=== PATIENT | male | born 1960 | race Caucasian/White ===

== ENCOUNTER → 2017-10-03 | Outpatient (CLI) | payer OTHER ==
[~2017-10-03] MED LIST: ALPR-411 PO; DEXT5CAP PO; TRAM-10 PO
[2017-10-03 12:59] LABS: BLOOD UREA NITROGEN 17 mg/dl (7-18); CALCIUM 8.6 mg/dl (8.5-10.1); CARBON DIOXIDE 28 mmol/L (21-32); CHOLESTEROL 189 mg/dl (0-200); CREATININE 0.93 mg/dl (0.60-1.40); GLUCOSE 98 mg/dl (70-99); POTASSIUM 4.2 mmol/L (3.5-5.1); SODIUM 138 mmol/L (136-145)
[2017-10-03 13:03] LABS: LDL CHOLESTEROL CALCULATED 120 mg/dl
== END | disposition home or self-care (01) ==
LOC: C.LAB1850 10:54
PROVIDERS: ATTEND Internal Medicine
DX: Z13.220 Encounter for screening for lipoid disorders (principal); Z12.5 Encounter for screening for malignant neoplasm of prostate; G47.61 Periodic limb movement disorder